=== PATIENT | female | born 1950 | race Caucasian/White ===

== ENCOUNTER 2018-11-27 21:23 | Inpatient (IN) | payer OTHER ==
[~2018-11-27] VITALS: Ht 162.6 cm; Wt 69.1 kg
[2018-11-27 21:35] VITALS: Ht 162.6 cm; Wt 69.1 kg
[2018-11-27 22:10] LABS: BASOPHIL % 0.9 % (0-2); PLATELET COUNT 188 x10^3mcL (130-400); RED CELL DISTRIBUTION WIDTH 12.7 % (11.5-14.5)
[2018-11-27 22:15] LABS: CALCIUM 8.3 mg/dL (8.5-10.1); CARBON DIOXIDE 27.4 mmol/L (21-32); CHLORIDE SERUM 99 mmol/L (98-107); GFR1 59 mL/min; GLUCOSE SERUM 95 mg/dL (74-106); POTASSIUM SERUM 3.7 mmol/L (3.5-5.1); SODIUM SERUM 136 mmol/L (136-145)
[2018-11-27 22:19] LABS: ALBUMIN 3.5 g/dL (3.4-5.0); ALKALINE PHOSPHATASE 120 U/L (46-116); ALT/SGPT 26 U/L (14-59); AST/SGOT 20 U/L (15-37); BILIRUBIN TOTAL 0.2 mg/dL (0.20-1.00); CHOLESTEROL 194 mg/dL (<200); TOTAL PROTEIN, SERUM 7.2 g/dL (6.4-8.2)
[2018-11-28 01:30] VITALS: BP 144/80
[2018-11-28 06:17] VITALS: BP 101/61
[2018-11-28 09:19] VITALS: BP 123/69
[2018-11-28 13:13] VITALS: BP 114/48
[2018-11-28 16:57] VITALS: BP 141/85
[2018-11-28 17:24] LABS: microscopic required? YES; urine erythrocyte NEGATIVE (NEGATIVE)
[2018-11-28 17:33] LABS: AMPHETAMINE QUAL UR NONE DETECTED (See below)
[2018-11-28 20:38] VITALS: BP 138/63
[2018-11-29 05:16] VITALS: BP 139/62
[2018-11-29 07:24] LABS: ALBUMIN 3.5 g/dL (3.4-5.0); ALKALINE PHOSPHATASE 130 U/L (46-116); ALT/SGPT 31 U/L (14-59); AST/SGOT 26 U/L (15-37); BILIRUBIN TOTAL 0.3 mg/dL (0.20-1.00); CALCIUM 8.5 mg/dL (8.5-10.1); CARBON DIOXIDE 27.9 mmol/L (21-32); CHLORIDE SERUM 101 mmol/L (98-107); CREATININE SERUM 0.9 mg/dL (0.6-1.0); GFR1 > 60 mL/min; GLUCOSE SERUM 93 mg/dL (74-106); POTASSIUM SERUM 4.4 mmol/L (3.5-5.1); SODIUM SERUM 137 mmol/L (136-145); T4(THYROXINE) 6.5 ug/dL (4.7-13.3); TOTAL PROTEIN, SERUM 7.8 g/dL (6.4-8.2)
[2018-11-29 07:30] LABS: BASOPHIL % 0.6 % (0-2); PLATELET COUNT 213 x10^3mcL (130-400); RED CELL DISTRIBUTION WIDTH 11.9 % (11.5-14.5)
[2018-11-29 09:10] LABS: ERYTHROCYTE SED RATE 31 mm/hr (0-30)
[2018-11-29 10:22] VITALS: BP 114/62
[2018-11-29 11:32] VITALS: BP 114/62
[2018-11-30 20:02] LABS: RAPID PLASMA REAGIN Non Reactive (Non Reactive); RHEUMATOID ARTHRITIS FACTOR <10.0 IU/mL (0.0-13.9)
== END 2018-11-29 14:10 | disposition home or self-care (01) | DRG 947 ==
LOC: ED 21:23 → DU 11-28 00:24
PROVIDERS: Specialist; ADMIT Internal Medicine
DX: R41.82 Altered mental status, unspecified (principal); G93.41 Metabolic encephalopathy; N39.0 Urinary tract infection, site not specified; E03.9 Hypothyroidism, unspecified; D72.819 Decreased white blood cell count, unspecified; G89.29 Other chronic pain; M54.5 Low back pain; T42.6X5A Adverse effect of other antiepileptic and sedative-hypnotic drugs, initial encounter; Y92.018 Other place in single-family (private) house as the place of occurrence of the external cause
CPT/HCPCS: 86431; G0480; J1956; J7030; J7050; Q0092